=== PATIENT | male | born 1995 | race Caucasian/White ===

== ENCOUNTER → 2018-10-27 | Outpatient (CLI) | payer BC ==
--- NOTE | 2018-10-27 10:15 | RAD ---
ABDOMEN LTD History: Elevated liver enzymes, hypertriglyceridemia Comparison: None. Findings: Multiple sonographic images of the abdomen are submitted. Distal aspect of the pancreas is poorly seen due to bowel gas, no significant abnormality of the visualized pancreas. Inferior vena cava is also poorly seen due to bowel gas, likely segmentally visualized. Gallbladder is present without demonstrable intraluminal abnormality, wall thickening, pericholecystic fluid. Common bile duct is within normal limits at 0.3 cm. There is diffuse coarsening of the echotexture of the liver, no focal hepatic lesion demonstrated by ultrasound. Right lobe of the liver measured 20.5 cm longitudinal. Right kidney measured 12.2 x 6.5 x 5.6 cm, no hydronephrosis. Impression: 1. There is diffuse hepatic steatosis. There is hepatomegaly. No other significant abnormality is demonstrated, limited evaluation of the distal pancreas and inferior vena cava on this exam. Electronically signed by: Augustus Brown MD (10/27/2018 10:13 AM) [id number]
== END | disposition home or self-care (01) ==
LOC: US 08:27
PROVIDERS: ATTEND Family Medicine
DX: K76.0 Fatty (change of) liver, not elsewhere classified (principal); R16.0 Hepatomegaly, not elsewhere classified; E78.1 Pure hyperglyceridemia
CPT/HCPCS: 76705